=== PATIENT | male | born 1980 | race Caucasian/White ===

== ENCOUNTER 2016-11-25 01:02 | Observation (INO) | payer MEDICARE, OTHER ==
[2016-11-25] VITALS (9 sets, daily range): BP systolic 96–115; BP diastolic 51–68; PULSE 79–98; RESP 12–20; TEMP 98.1–98.8; O2SAT 95–98
[~2016-11-25] VITALS: Ht 182.9 cm; Wt 87.0 kg
[2016-11-25] MEDS ORDERED: XANA1TAB2 PO (01:19)
[2016-11-25 01:39] LABS: AUTOMATED NEUTROPHIL # 5.9 TH/MM3 (1.8-7.7); BASOPHIL # 0.1 TH/MM3 (0-0.2); BASOPHIL % 0.7 % (0.0-2.0); EOSINOPHIL # 0.1 TH/MM3 (0-0.4); EOSINOPHIL % 0.8 % (0.0-4.0); HEMATOCRIT 41.2 % (39.0-51.0); HEMO FLAGS DIFF FINAL; LYMPH % 28.2 % (9.0-44.0); LYMPHOCYTE # 2.6 TH/MM3 (1.0-4.8); MEAN CELL VOLUME 84.9 FL (80.0-100.0); MEAN CORPUSCULAR HEMOGLOBIN 29.3 PG (27.0-34.0); MEAN CORPUSCULAR HGB CONC 34.5 % (32.0-36.0); MONO % 7.5 % (0.0-8.0); NEUT % 62.8 % (16.0-70.0); PLATELET COUNT 256 TH/MM3 (150-450); RED BLOOD COUNT 4.85 MIL/MM3 (4.50-5.90); RED CELL DISTRIBUTION WIDTH 13.8 % (11.6-17.2); WHITE BLOOD COUNT 9.4 TH/MM3 (4.0-11.0)
--- NOTE | 2016-11-25 01:40 | RADRPT ---
EXAM DATE/TIME: 11/25/2016 01:29 [place] COMPARISON: No previous studies available for comparison. INDICATIONS : Chest pain. MEDICAL HISTORY : None. SURGICAL HISTORY : None. ENCOUNTER: Initial ACUITY: 1 day PAIN SCORE: 10/10 LOCATION: Bilateral chest FINDINGS: A single view of the chest demonstrates the lungs to be symmetrically aerated without evidence of mas s, infiltrate or effusion. The cardiomediastinal contours are unremarkable. Osseous structures are intact. CONCLUSION: No acute disease. Nathaniel Crow MD on November 25, 2016 at 1:38 Board Certified Radiologist. This report was verified electronically.
[2016-11-25 01:56] LABS: APTT (PATIENT) 26.9 SEC (24.3-30.1); PROTHROMBIN TIME - PATIENT 10.8 SEC (9.8-11.6)
[2016-11-25 02:12] LABS: ANION GAP 11 MEQ/L (5-15); AST (GOT) 33 U/L (15-37); BICARBONATE 24.8 MEQ/L (21.0-32.0); BLOOD UREA NITROGEN 8 MG/DL (7-18); CHLORIDE 104 MEQ/L (98-107); GLOMERULAR FILTRATION RATE 63 ML/MIN (>89); MAGNESIUM 2.2 MG/DL (1.5-2.5); POTASSIUM 3.1 MEQ/L (3.5-5.1); SODIUM (NA) 140 MEQ/L (136-145)
--- NOTE | 2016-11-25 02:19 | PD ---
HPI Chief Complaint: Chest Pain Time Seen by Provider: 01:12 Travel History International Travel<30 days: No Contact w/Intl Traveler<30days: No Traveled to known affect area: No History of Present Illness HPI The patient is 36 year old male who presents to the [facility] emergency department with a history of chest pain that he describes as a tightening sensation that began at approximately midnight today. He reports that he was having intercourse with his girlfriend when this began. He reports that he felt like it was difficult to take a deep breath. He reports that he had nausea but no vomiting. He denies having any diaphoresis. He reports that the pain is in the center of his chest. He denies having any radiation of the pain. He denies ever having this pain previously. He did use methamphetamine at 2 PM for the first time today. Ports that he smokes approximately 5-7 cigarettes per day. He denies having any prior history of cardiac disease, hyperlipidemia, hypertension, or diabetes mellitus. He denies having any family history of heart disease. He does report having a history of anxiety disorder. He takes Xanax 1 mg 3 times a day. He denies ever having stress testing done previously. The patient denies any recent fevers, cough, congestion , neck pain, acid reflux, abdominal pain, vomiting, diarrhea, urinary symptoms, or neurologic symptoms. PFSH Past Medical History Narrative Medical The patient's past medical history is significant for anxiety disorder, tobacco use. Anxiety: Yes Diminished Hearing: No Tetanus Vaccination: Unknown Past Surgical History Narrative Surgical The patient's past surgical history is reportedly none. Surgical History: No Previous Surgery Social History Alcohol Use: Yes (occasionally) Tobacco Use: Yes (5-7 cigarettes per day.) Substance Use: Yes (tried meth for first time today) Allergies-Medications (Allergen,Severity, Reaction): Coded Allergies: No Known Allergies (Unverified , 11/25/16) Reported Meds & Prescriptions Reported Meds & Active Scripts Active Reported Xanax (Alprazolam) 1 Mg Tab 1 Mg PO Q8H PRN Review of Systems Except as stated in HPI: all other systems reviewed are Neg General / Constitutional: No: Fever Eyes: No: Visual changes HENT: No: Headaches Cardiovascular: Positive: Chest Pain or Discomfort, Dyspnea on exertion Respiratory: Positive: Shortness of Breath, No: Cough Gastrointestinal: Positive: Nausea, No: Vomiting, Diarrhea, Abdominal Pain, Changes in Bowel Habits, Indigestion, Loss of Appetite Genitourinary: No: Dysuria Musculoskeletal: No: Pain Skin: No Rash Neurologic: No: Weakness, Focal Abnormalities, Change in Mentation, Slurred Speech, Sensory Disturbance Psychiatric: No: Depression Endocrine: No: Polydipsia Hematologic/Lymphatic: No: Easy Bruising Physical Exam Narrative General: The patient is a well-developed well-nourished male in no acute distress. Head and Neck exam: Head is normocephalic atraumatic. Eyes: EOMI, pupils are equal round and reactive to light. Nose: Midline septum with pink mucous membranes Mouth: Dentition unremarkable. Moist mucus membranes. Posterior oropharynx is not erythematous. No tonsillar hypertrophy. Uvula midline. Airway patent. Neck: No palpable lymphadenopathy. No nuchal rigidity. No thyromegaly. Cardiovascular: Regular rate and rhythm without murmurs, gallops, or rubs. No pulse deficit to the extremities and simultaneous auscultation and palpation of his radial artery. Lungs: Clear to auscultation bilaterally. No wheezes, rhonchi, or rales. Abdomen: Soft, without tenderness to palpation in all 4 quadrants of the abdomen. No guarding, rebound, or rigidity. Normal bowel sounds are audible. No tenderness on palpation of McBurney's point. Extremities: No clubbing, cyanosis, or edema. 2+ pulses in all 4 extremities. No calf tenderness on palpation. Back: No costovertebral angle tenderness to palpation. Neurologic Exam: Grossly nonfocal. Skin Exam: No rash noted. Intact skin that is warm and dry. Data Data Last Documented VS Vital Signs Date Time Temp Pulse Resp B/P Pulse Ox O2 Delivery O2 Flow Rate FiO2 11/25/16 02:56 91 16 115/64 97 Room Air 11/25/16 01:08 98.8 Orders Electrocardiogram (11/25/16 01:14) B-Type Natriuretic Peptide (11/25/16 01:14) Ckmb (Isoenzyme) Profile (11/25/16 01:14) Complete Blood Count With Diff (11/25/16 01:14) Comprehensive Metabolic Panel (11/25/16 01:14) Magnesium (Mg) (11/25/16 01:14) Prothrombin Time / Inr (Pt) (11/25/16 01:14) Act Partial Throm Time (Ptt) (11/25/16 01:14) Troponin I (11/25/16 01:14) Lipase (11/25/16 01:14) Chest, Single Ap (11/25/16 01:14) Ecg Monitoring (11/25/16 01:14) Bilateral Bp Monitoring (11/25/16 01:14) Iv Access Insert/Monitor (11/25/16 01:14) Oximetry (11/25/16 01:14) Oxygen Administration (11/25/16 01:14) Aspirin Chew (Aspirin Chew) (11/25/16 02:30) Sodium Chlorid 0.9% 500 Ml Inj (Ns 500 M (11/25/16 02:30) Nitroglycerin 2% Oint (Nitroglycerin 2% (11/25/16 02:30) Nitroglycerin Sl (Nitrostat Sl) (11/25/16 02:30) CKMB (11/25/16 01:15) CKMB% (11/25/16 01:15) Potassium Chloride Eff (K-Lyte Cl Eff) (11/25/16 03:30) Sodium Chlor 0.9% 1000 Ml Inj (Ns 1000 M (11/25/16 03:30) Admit Order (Ed Use Only) (11/25/16 03:19) Labs Laboratory Tests Test 11/25/16 01:15 White Blood Count 9.4 TH/MM3 Red Blood Count 4.85 MIL/MM3 Hemoglobin 14.2 GM/DL Hematocrit 41.2 % Mean Corpuscular Volume 84.9 FL Mean Corpuscular Hemoglobin 29.3 PG Mean Corpuscular Hemoglobin 34.5 % Concent Red Cell Distribution Width 13.8 % Platelet Count 256 TH/MM3 Mean Platelet Volume 7.7 FL Neutrophils (%) (Auto) 62.8 % Lymphocytes (%) (Auto) 28.2 % Monocytes (%) (Auto) 7.5 % Eosinophils (%) (Auto) 0.8 % Basophils (%) (Auto) 0.7 % Neutrophils # (Auto) 5.9 TH/MM3 Lymphocytes # (Auto) 2.6 TH/MM3 Monocytes # (Auto) 0.7 TH/MM3 Eosinophils # (Auto) 0.1 TH/MM3 Basophils # (Auto) 0.1 TH/MM3 CBC Comment DIFF FINAL Differential Comment Prothrombin Time 10.8 SEC Prothromb Time International 1.0 RATIO Ratio Activated Partial 26.9 SEC Thromboplast Time Sodium Level 140 MEQ/L Potassium Level 3.1 MEQ/L Chloride Level 104 MEQ/L Carbon Dioxide Level 24.8 MEQ/L Anion Gap 11 MEQ/L Blood Urea Nitrogen 8 MG/DL Creatinine 1.28 MG/DL Estimat Glomerular Filtration 63 ML/MIN Rate Random Glucose 106 MG/DL Calcium Level 8.6 MG/DL Magnesium Level 2.2 MG/DL Total Bilirubin 0.5 MG/DL Aspartate Amino Transf 33 U/L (AST/SGOT) Alanine Aminotransferase 46 U/L (ALT/SGPT) Alkaline Phosphatase 58 U/L Total Creatine Kinase 976 U/L Creatine Kinase MB 5.4 NG/ML Creatine Kinase MB % 0.6 % Troponin I LESS THAN 0.02 NG/ML B-Type Natriuretic Peptide LESS THAN 2 PG/ML Total Protein 6.7 GM/DL Albumin 3.6 GM/DL Lipase 75 U/L MDM Medical Decision Making Medical Screen Exam Complete: Yes Emergency Medical Condition: Yes Medical Record Reviewed: Yes Interpretation(s) Last Impressions Chest X-Ray 11/25/16 0114 Signed Impressions: Service Date/Time: Friday, November 25, 2016 01:29 - CONCLUSION: No acute disease. Nathaniel Crow MD Differential Diagnosis Acute coronary syndrome, versus pneumothorax, versus anxiety disorder, versus pneumonia, versus costochondritis, versus pleurisy Narrative Course During the course of the patients emergency department visit, the patients history, examination, and differential diagnosis were reviewed with the patient. The patient had IV access obtained and blood work sent for analysis. The patient was placed on a cardiac monitor technician with oximetry and blood pressure monitoring. An EKG was done on arrival. The patient's EKG shows a sinus rhythm with occasional premature atrial complexes. No acute ST segment elevation or depression is noted. QRS duration is 99 ms, QTc is 415 ms. The patient was initially provided aspirin 162 mg by mouth 1. Nitroglycerin sublingual 1, nitroglycerin 1 inch to the chest wall, normal saline a 500 mL bolus 1. The patients laboratory studies were reviewed and remarkable for a CBC that is within normal limits. CMP is remarkable for potassium of 3.1 which was supplemented orally, GFR 63, CPK 976 with an MB percent is 0.6, troponin I less than 0.02, BNP is less than 2, lipase 75, PT PTT within normal limits. Given the patient's elevated CPK although it does not meet criteria for rhabdomyolysis patient was given increased hydration. The patient was given normal saline and additional liter IV fluid bolus and will be maintained on maintenance normal saline IV fluids. Radiology studies were reviewed and remarkable for a chest x-ray that showed no acute abnormality. The patients results were discussed with the patient, including the plan of care. I explained that further testing and/ or monitoring is indicated based on the patients history, examination, and/ or laboratory findings. Therefore, I recommended admission for additional evaluation. The patient expressed understanding and was agreeable with this plan. The patient was admitted to the hospital in stable condition and sent to a bed under the care of the chest pain center. Diagnosis Primary Impression: Chest pain, rule out acute myocardial infarction Admitting Information Admitting Physician Requests: Joyce Carbone MD November 25, 2016 02:19
[2016-11-25 02:25] LABS: ALKALINE PHOSPHATASE 58 U/L (45-117); ALT (GPT) 46 U/L (12-78); CREATINE KINASE 976 U/L (39-308); TOTAL BILIRUBIN ADULT 0.5 MG/DL (0.2-1.0)
[2016-11-25] MEDS ORDERED: SODIUM CHLORID 0.9% 500 ML INJ 500 ML IV ONE (02:30)
[2016-11-25] MEDS ORDERED: NITROGLYCERIN 2% OINT 1 GM PACKET TOPICAL ONE (02:30)
[2016-11-25] MEDS ORDERED: ASPIRIN 81 MG CHEW TAB CHEW ONE (02:30)
[2016-11-25] MEDS ORDERED: NITROGLYCERIN 0.4 MG SL 25 TABS/BTL SL ONE (02:30)
[2016-11-25 02:38] LABS: CKMB 5.4 NG/ML (0.5-3.6)
[2016-11-25] MEDS ORDERED: SODIUM CHLOR 0.9% 1000 ML INJ 1,000 ML IV SCH (03:21)
[2016-11-25] MEDS ORDERED: POTASSIUM CHLORIDE 25 MEQ EFFERVESCENT TAB PO ONE (03:30)
[2016-11-25] MEDS ORDERED: ONDANSETRON HCL 4 MG/2 ML VIAL IV PRN (03:30)
[2016-11-25] MEDS ORDERED: SODIUM CHLOR 0.9% 1000 ML INJ 1,000 ML IV ONE (03:30)
[2016-11-25] MEDS ORDERED: ACETAMINOPHEN 500 MG CPLT PO PRN (03:30)
[2016-11-25] MEDS ORDERED: SODIUM CHLORIDE 0.9% FLUSH 10 ML FLUSH IV FLUSH PRN (03:30)
[2016-11-25 05:39] LABS: CREATINE KINASE 831 U/L (39-308)
[2016-11-25 05:52] LABS: CKMB 4.3 NG/ML (0.5-3.6)
[2016-11-25 08:16] LABS: CREATINE KINASE 827 U/L (39-308)
[2016-11-25 08:28] LABS: CKMB 4.6 NG/ML (0.5-3.6)
[2016-11-25] MEDS ORDERED: CYMB30CA PO (08:32)
[2016-11-25] MEDS ORDERED: SODIUM CHLORIDE 0.9% FLUSH 10 ML FLUSH IV FLUSH SCH (09:00)
--- NOTE | 2016-11-25 09:16 | HHI.HP ---
HPI Primary Care Physician No Primary Care Physician Chief Complaint Chest pain History of Present Illness This is a 36-year-old male that presents to ED to evaluate chest discomfort. He states that the discomfort began around 9:00 last evening while he was at home. [place] a tightness in the center of his chest. It was a 9 out of 10. He was a little short of breath. No nausea or diaphoresis. The discomfort is still there however not as intense. He could not recall initially and it may have caused the discomfort but now measures to using crystal methamphetamine a few hours prior. He states that the first time he had used the drug. He denies other illicit drug use. Denies history of CAD. Rates his lung medical problems are related to anxiety and PTSD. He states he is on disability for PTSD. Denies recent travel. Denies recent illness. Denies fevers or chills. Review of Systems General: Patient denies fevers, chills recent, and recent travel HEENT: Patient denies headache, sore throat, difficulty swallowing. Cardiovascular: Has the chest discomfort as mentioned above. Denies sensation of heart beating rapidly or irregularly. No syncope. Denies diaphoresis. Respiratory: He was a little short of breath. Denies inspirational chest discomfort. Denies coughing wheezing or hemoptysis. GI: Patient denies nausea, vomiting, diarrhea, abdominal pain, bloody stools. Musculoskeletal: Patient denies joint pain or edema. Denies calf pain or edema. Neurovascular: Patient denies numbness, tingling, weakness in extremities. Denies headache. Endocrine: Denies polyuria and polydipsia. Hematologic: Denies easy bruising. Skin: Denies rash or itching. Past Family Social History Allergies: Coded Allergies: No Known Allergies (Unverified , 11/25/16) Past Medical History PTSD. Anxiety. Tobacco abuse. Substance abuse. Denies diabetes, hypertension , hyperlipidemia, and known CAD. Past Surgical History Denies. Reported Medications Reported Meds & Active Scripts Active Reported Cymbalta DR (Duloxetine HCl) 30 Mg Capdr 30 Mg PO DAILY Xanax (Alprazolam) 1 Mg Tab 1 Mg PO Q8H PRN Active Ordered Medications Current Medications Medications (Trade) Dose Ordered Sig/Dave Route Start Time Stop Time Status Last Admin (NS 1000 ml Inj) 1,000 ml @ 100 mls/hr Q10H IV 11/25/16 03:21 (NS Flush) 2 ml UNSCH PRN IV FLUSH 11/25/16 03:30 (NS Flush) 2 ml BID IV FLUSH 11/25/16 09:00 (Tylenol) 500 mg Q4H PRN PO 11/25/16 03:30 11/25/16 08:35 (Zofran Inj) 4 mg Q6H PRN IV 11/25/16 03:30 Family History Denies family history of CAD. Social History Patient smokes about one half pack of cigarettes daily for 24 years. He has occasional alcohol. States he tried crystal methamphetamine for the first time yesterday. Physical Exam Vital Signs Vital Signs Date Time Temp Pulse Resp B/P Pulse Ox O2 Delivery O2 Flow Rate FiO2 11/25/16 08:37 98.1 81 16 98/51 96 11/25/16 06:08 98.1 88 18 96/53 96 11/25/16 05:00 89 16 110/68 97 Room Air 11/25/16 03:26 95 21 11/25/16 02:56 91 16 115/64 97 Room Air 11/25/16 01:17 97 Room Air 11/25/16 01:17 112/56 11/25/16 01:17 12 97 Room Air 11/25/16 01:13 99 Room Air 11/25/16 01:08 98.8 98 20 112/56 98 Physical Exam GENERAL: This is a well-nourished, well-developed patient, in no apparent distress. Patient speaks in clear complete sentences. Patient is pleasant. HEENT: Head is atraumatic and normocephalic. Neck is supple without lymphadenopathy and trachea is midline. No JVD or carotid bruits. CARDIOVASCULAR: Regular rate and rhythm without murmurs, gallops, or rubs. RESPIRATORY: Clear to auscultation. Breath sounds equal bilaterally. No wheezes , rales, or rhonchi. Chest wall is nontender. No use of accessory muscles. GASTROINTESTINAL: Abdomen is nontender, nondistended. Abdomen soft. No obvious pulsatile mass or bruit. No CVA tenderness. Strong femoral pulses bilaterally. Normal bowel sounds in all quadrants. MUSCULOSKELETAL: Patient is moving upper and lower extremities freely. No calf tenderness or edema, no Homans sign. Strong pulses in upper and lower extremities. NEUROLOGICAL: Patient is alert and oriented. Cranial nerves 2-12 are grossly intact. No focal deficits and speech is clear. SKIN: No rash and turgor is normal. Laboratory Laboratory Tests Test 11/25/16 11/25/16 11/25/16 01:15 04:23 06:35 White Blood Count 9.4 Red Blood Count 4.85 Hemoglobin 14.2 Hematocrit 41.2 Mean Corpuscular Volume 84.9 Mean Corpuscular Hemoglobin 29.3 Mean Corpuscular Hemoglobin 34.5 Concent Red Cell Distribution Width 13.8 Platelet Count 256 Mean Platelet Volume 7.7 Neutrophils (%) (Auto) 62.8 Lymphocytes (%) (Auto) 28.2 Monocytes (%) (Auto) 7.5 Eosinophils (%) (Auto) 0.8 Basophils (%) (Auto) 0.7 Neutrophils # (Auto) 5.9 Lymphocytes # (Auto) 2.6 Monocytes # (Auto) 0.7 Eosinophils # (Auto) 0.1 Basophils # (Auto) 0.1 CBC Comment DIFF FINAL Differential Comment Prothrombin Time 10.8 Prothromb Time International 1.0 Ratio Activated Partial 26.9 Thromboplast Time Sodium Level 140 Potassium Level 3.1 Chloride Level 104 Carbon Dioxide Level 24.8 Anion Gap 11 Blood Urea Nitrogen 8 Creatinine 1.28 Estimat Glomerular Filtration 63 Rate Random Glucose 106 Calcium Level 8.6 Magnesium Level 2.2 Total Bilirubin 0.5 Aspartate Amino Transf 33 (AST/SGOT) Alanine Aminotransferase 46 (ALT/SGPT) Alkaline Phosphatase 58 Total Creatine Kinase 976 831 827 Creatine Kinase MB 5.4 4.3 4.6 Creatine Kinase MB % 0.6 0.5 0.6 Troponin I LESS THAN 0.02 LESS THAN 0.02 LESS THAN 0.02 B-Type Natriuretic Peptide LESS THAN 2 Total Protein 6.7 Albumin 3.6 Lipase 75 Result Diagram: 11/25/1611411/25/16114 Imaging Last 24 hours Impressions Chest X-Ray 11/25/16113 Signed Impressions: Service Date/Time: Friday, November 25, 2016 01:29 - CONCLUSION: No acute disease. Nathaniel Crow MD Course EKGs have sinus rhythm without significant ST segment depressions or elevations. Assessment and Plan Assessment and Plan * Chest pain: His symptoms are atypical. He had normal troponins 3. CPKs are elevated to indicate some muscle breakdown but not cardiac. He'll be given IV hydration and advised to continue increased fluid intake the next couple days to hydrate himself. He should follow-up with local doctor. * PTSD: Continue current medication. * Tobacco abuse: Patient was counseled on the importance of tobacco cessation. * Illicit drug use: Patient has been advised to no longer use illicit drugs. Patient is stable to time. He is agreeable to this plan. Dieudonne Blunt November 25, 2016 09:16
--- NOTE | 2016-11-25 09:19 | HHI.DCPOC ---
Discharge Care Plan Diagnosis: (1) Chest pain (2) PTSD (post-traumatic stress disorder) (3) Tobacco abuse (4) Chest pain, rule out acute myocardial infarction Goals to Promote Your Health * To prevent worsening of your condition and complications * To maintain your health at the optimal level Directions to Meet Your Goals Take your medications as prescribed Follow your dietary instruction Follow activity as directed Keep your appointments as scheduled Take your immunizations and boosters as scheduled If your symptoms worsen call your PCP, if no PCP go to Urgent Care Center or Emergency Room Smoking is Dangerous to Your Health. Avoid second hand smoke Call the 24-hour hour crisis hotline for domestic abuse at Dieudonne Blunt November 25, 2016 09:19
--- NOTE | 2016-11-25 17:23 | EKG ---
Date Performed: 11/25/2016 Time Performed: 06:46:54 PTAGE: 36 years EKG: Sinus rhythm NORMAL ECG Since PREVIOUS TRACING , no significant change noted PREVIOUS TRACIN11/25/2016 04.56 DOCTOR: Ave Maldondao Interpretating Date/Time 11/25/2016 17:22:59
--- NOTE | 2016-11-25 17:23 | EKG ---
Date Performed: 11/25/2016 Time Performed: 04:56:31 PTAGE: 36 years EKG: Sinus rhythm NORMAL ECG Since PREVIOUS TRACING , no significant change noted DOCTOR: Ave Maldonado Interpretating Date/Time 11/25/2016 17:23:12
--- NOTE | 2016-11-25 17:25 | EKG ---
Date Performed: 11/25/2016 Time Performed: 01:10:04 PTAGE: 36 years EKG: Sinus rhythm WITH OCCASIONAL SUPRAVENTRICULAR PREMATURE COMPLEXES BORDERLINE ECG NO PREVIOUS TRACING DOCTOR: Ave Maldonado Interpretating Date/Time 11/25/2016 17:24:33
== END 2016-11-25 13:07 | disposition home or self-care (01) ==
LOC: NEPE 01:02 → NEDA 03:21 → NEPGCP 05:53
PROVIDERS: ADMIT Internal Medicine Cardiovascular Disease; ATTEND Internal Medicine Cardiovascular Disease
DX: R07.9 Chest pain, unspecified (principal); F43.10 Post-traumatic stress disorder, unspecified; R11.0 Nausea; R06.02 Shortness of breath; F17.210 Nicotine dependence, cigarettes, uncomplicated
CPT/HCPCS: 71010; 80053; 82550; 82552; 83690; 83735; 83880; 84484; 85025; 85610; 85730; 93005; 96360; 99285; G0378; J7030; J7040

== ENCOUNTER 2017-12-27 21:39 | Emergency (ER) | payer MEDICARE, OTHER ==
[2017-12-27 21:59] VITALS: BP 185/81; PULSE 90; RESP 16; TEMP 97.7; O2SAT 98
--- NOTE | 2017-12-27 22:19 | PD ---
HPI Chief Complaint: GI Complaint Time Seen by Provider: 22:01 Travel History International Travel<30 days: No Contact w/Intl Traveler<30days: No Traveled to known affect area: No History of Present Illness HPI The patient is a 37 year old male who presents to the [facility] emergency department with a history of nausea, vomiting, and diarrhea that began this morning. The patient denies any sick contacts. He reports that he was drinking alcohol yesterday which sometimes. He reports that he drinks 6 beers which is more alcohol than he usually drinks. He denies having blood in his emesis or blood in his stool. He denies having any mucus in his stool. He denies any recent antibiotic use. He denies any unusual food intake. He denies any foreign travel. He denies having any recent fevers. The patient reports having associated midepigastric abdominal pain. On review of systems otherwise, he denies having any cough or congestion, neck pain, chest pain, shortness of breath, urinary symptoms, or neurologic symptoms. [facility] Past Medical History Narrative Medical The patient's past medical history is significant for anxiety disorder, posttraumatic stress disorder. Asthma: Yes Anxiety: Yes Depression: No Cancer: No Cardiovascular Problems: No Diminished Hearing: No Endocrine: No Genitourinary: No Immune Disorder: No Musculoskeletal: No Neurologic: No Psychiatric: Yes Reproductive: No Respiratory: No Immunizations Current: Yes Past Surgical History Narrative Surgical The patient's past surgical history is reportedly none. Social History Alcohol Use: Yes Tobacco Use: Yes (5-7 cigarettes per day.) Substance Use: No Allergies-Medications (Allergen,Severity, Reaction): Coded Allergies: No Known Allergies (Unverified Adverse Reaction, Unknown, 12/27/17) Reported Meds & Prescriptions Reported Meds & Active Scripts Active No Active Prescriptions or Reported Medications Review of Systems Except as stated in HPI: all other systems reviewed are Neg General / Constitutional: No: Fever Eyes: No: Visual changes HENT: No: Headaches Cardiovascular: No: Chest Pain or Discomfort Respiratory: No: Shortness of Breath Gastrointestinal: Positive: Nausea, Vomiting, Diarrhea, Abdominal Pain, Changes in Bowel Habits, Indigestion, No: Hematemesis, Hematochezia, Loss of Appetite Genitourinary: No: Dysuria Musculoskeletal: No: Pain Skin: No Rash Neurologic: No: Weakness, Focal Abnormalities, Change in Mentation, Slurred Speech, Sensory Disturbance Psychiatric: No: Depression Endocrine: No: Polydipsia Hematologic/Lymphatic: No: Easy Bruising Physical Exam Narrative General: The patient is a well-developed well-nourished male in no acute distress. Head and Neck exam: Head is normocephalic atraumatic. Eyes: EOMI, pupils are equal round and reactive to light. Nose: Midline septum with pink mucous membranes Mouth: Dentition unremarkable. Moist mucus membranes. Posterior oropharynx is not erythematous. No tonsillar hypertrophy. Uvula midline. Airway patent. Neck: No palpable lymphadenopathy. No nuchal rigidity. No thyromegaly. Cardiovascular: Regular rate and rhythm without murmurs, gallops, or rubs. No pulse deficit to the extremities on simultaneous auscultation and palpation of his radial artery. Lungs: Clear to auscultation bilaterally. No wheezes, rhonchi, or rales. Abdomen: Soft, without tenderness to palpation in all 4 quadrants of the abdomen. No guarding, rebound, or rigidity. Normal bowel sounds are audible. No tenderness on palpation of McBurney's point. Negative Bowling sign. Extremities: No clubbing, cyanosis, or edema. 2+ pulses in all 4 extremities. No calf tenderness on palpation. Back: No costovertebral angle tenderness to palpation. Neurologic Exam: Grossly nonfocal. Skin Exam: No rash noted. Intact skin that is warm and dry. Data Data Last Documented VS Vital Signs Date Time Temp Pulse Resp B/P (MAP) Pulse Ox O2 Delivery O2 Flow Rate FiO2 12/27/17 23:03 12/27/17 22:39 88 16 99 Room Air 12/27/17 21:59 97.7 Orders Orders Electrocardiogram (12/27/17 22:17) Complete Blood Count With Diff (12/27/17 22:17) Comprehensive Metabolic Panel (12/27/17 22:17) Lipase (12/27/17 22:17) Magnesium (Mg) (12/27/17 22:17) Iv Access Insert/Monitor (12/27/17 22:17) Ecg Monitoring (12/27/17 22:17) Oximetry (12/27/17 22:17) Sodium Chlor 0.9% 1000 Ml Inj (Ns 1000 M (12/27/17 22:30) Prochlorperazine Inj (Compazine Inj) (12/27/17 22:30) Labs Laboratory Tests Test 12/27/17 22:30 White Blood Count 8.9 TH/MM3 Red Blood Count 5.12 MIL/MM3 Hemoglobin 15.1 GM/DL Hematocrit 44.6 % Mean Corpuscular Volume 87.1 FL Mean Corpuscular Hemoglobin 29.4 PG Mean Corpuscular Hemoglobin Concent 33.8 % Red Cell Distribution Width 14.4 % Platelet Count 286 TH/MM3 Mean Platelet Volume 7.6 FL Neutrophils (%) (Auto) 63.4 % Lymphocytes (%) (Auto) 26.9 % Monocytes (%) (Auto) 8.8 % Eosinophils (%) (Auto) 0.2 % Basophils (%) (Auto) 0.7 % Neutrophils # (Auto) 5.7 TH/MM3 Lymphocytes # (Auto) 2.4 TH/MM3 Monocytes # (Auto) 0.8 TH/MM3 Eosinophils # (Auto) 0.0 TH/MM3 Basophils # (Auto) 0.1 TH/MM3 CBC Comment DIFF FINAL Differential Comment Blood Urea Nitrogen 13 MG/DL Creatinine 1.09 MG/DL Random Glucose 135 MG/DL Total Protein 7.3 GM/DL Albumin 4.0 GM/DL Calcium Level 8.4 MG/DL Magnesium Level 2.2 MG/DL Alkaline Phosphatase 82 U/L Aspartate Amino Transf (AST/SGOT) 30 U/L Alanine Aminotransferase (ALT/SGPT) 95 U/L Total Bilirubin 0.3 MG/DL Sodium Level 139 MEQ/L Potassium Level 3.8 MEQ/L Chloride Level 103 MEQ/L Carbon Dioxide Level 27.1 MEQ/L Anion Gap 9 MEQ/L Estimat Glomerular Filtration Rate 75 ML/MIN Lipase 75 U/L [facility] Medical Decision Making Medical Screen Exam Complete: Yes Emergency Medical Condition: Yes Medical Record Reviewed: Yes Differential Diagnosis Viral versus bacterial gastroenteritis, versus alcohol related gastritis, versus electrolyte derangements, versus dehydration Narrative Course During the course of the patient's emergency department visit, the patient's history, examination, and differential diagnosis were reviewed with the patient. The patient was placed on a court monitor with oximetry and frequent blood pressure monitoring. The patient had IV access obtained and blood work sent for analysis. The patient had an EKG done on arrival. The patient's EKG shows a sinus rhythm heart rate of 86, QRS duration 96 ms, QTC [address] segment elevation is noted. T waves are inverted in lead III. The patient was initially provided normal saline 1 L IV fluid bolus, Compazine 5 mg IV. The patient's laboratory studies were reviewed and remarkable for 12/27/17 22:30 Total Protein 7.3, Albumin 4.0, Calcium Level 8.4 L, Magnesium Level 2.2, Alkaline Phosphatase 82, Aspartate Amino Transf (AST/SGOT) 30, Alanine Aminotransferase (ALT/SGPT) 95 H, Total Bilirubin 0.3 Prior to the patient's chemistry being resulted, I was notified by the nurse that the patient had decided that he wanted to leave. I went in to discuss the patient's reason for leaving with him further, however he did not have any particular reason, instead he reports that he just has to go. I explained that he could have dehydration, electrolyte derangements or other abnormalities that I would not be able to diagnose without this further information. The patient continues to insist to leave AGAINST MEDICAL ADVICE. AMA: The risks of leaving against medical advice without further evaluation treatment were discussed with the patient. These risks include dehydration, electrolyte derangements which could lead to cardiac dysrhythmias, renal failure , or even . The patient indicated understanding of these risks and appeared to have the capacity to make this decision. Diagnosis Primary Impression: Nausea, vomiting, and diarrhea Referrals: [facility] 2 days Primary Care Physician 2 days Patient Instructions: Acute Diarrhea (ED), Acute Nausea and Vomiting (ED), General Instructions Scripts No Active Prescriptions or Reported Meds Disposition: 07 AGAINST MEDICAL ADVICE Condition: Stable Joyce Mendoza MD Dec 27, 2017 22:19
[2017-12-27] MEDS ORDERED: SODIUM CHLOR 0.9% 1000 ML INJ 1,000 ML IV ONE (22:30)
[2017-12-27] MEDS ORDERED: PROCHLORPERAZINE INJ 10 MG/2 ML VIAL IV PUSH ONE (22:30)
[2017-12-27 22:39] VITALS: BP 131/69; PULSE 88; RESP 16; O2SAT 99
[2017-12-27 22:45] LABS: AUTOMATED NEUTROPHIL # 5.7 TH/MM3 (1.8-7.7); BASOPHIL # 0.1 TH/MM3 (0-0.2); BASOPHIL % 0.7 % (0.0-2.0); EOSINOPHIL % 0.2 % (0.0-4.0); HEMATOCRIT 44.6 % (39.0-51.0); HEMOGLOBIN 15.1 GM/DL (13.0-17.0); LYMPH % 26.9 % (9.0-44.0); LYMPHOCYTE # 2.4 TH/MM3 (1.0-4.8); MEAN CELL VOLUME 87.1 FL (80.0-100.0); MEAN CORPUSCULAR HEMOGLOBIN 29.4 PG (27.0-34.0); MEAN CORPUSCULAR HGB CONC 33.8 % (32.0-36.0); MEAN PLATELET VOLUME 7.6 FL (7.0-11.0); MONO % 8.8 % (0.0-8.0); MONOCYTE # 0.8 TH/MM3 (0-0.9); NEUT % 63.4 % (16.0-70.0); PLATELET COUNT 286 TH/MM3 (150-450); RED BLOOD COUNT 5.12 MIL/MM3 (4.50-5.90); RED CELL DISTRIBUTION WIDTH 14.4 % (11.6-17.2); WHITE BLOOD COUNT 8.9 TH/MM3 (4.0-11.0)
[2017-12-27 23:07] LABS: ALT (GPT) 95 U/L (12-78); AST (GOT) 30 U/L (15-37); BICARBONATE 27.1 MEQ/L (21.0-32.0); BLOOD UREA NITROGEN 13 MG/DL (7-18); CALCIUM 8.4 MG/DL (8.5-10.1); CHLORIDE 103 MEQ/L (98-107); CREATININE 1.09 MG/DL (0.60-1.30); GLOMERULAR FILTRATION RATE 75 ML/MIN (>89); GLUCOSE,RANDOM 135 MG/DL (74-106); MAGNESIUM 2.2 MG/DL (1.5-2.5); SODIUM (NA) 139 MEQ/L (136-145)
[2017-12-27 23:10] LABS: ALKALINE PHOSPHATASE 82 U/L (45-117); TOTAL BILIRUBIN ADULT 0.3 MG/DL (0.2-1.0); TOTAL PROTEIN 7.3 GM/DL (6.4-8.2)
--- NOTE | 2017-12-28 23:03 | EKG ---
Date Performed: 12/27/2017 Time Performed: 22:35:25 PTAGE: 37 years EKG: Sinus rhythm NORMAL ECG PREVIOUS TRACING : 11/25/2016 06.46 DOCTOR: Johan Stovall Interpretating Date/Time 12/28/2017 22:55:58
== END 2017-12-27 23:02 | disposition left against medical advice (07) ==
LOC: NEPC 21:39
DX: R11.2 Nausea with vomiting, unspecified (principal); R19.7 Diarrhea, unspecified; J45.909 Unspecified asthma, uncomplicated; F43.10 Post-traumatic stress disorder, unspecified; F41.9 Anxiety disorder, unspecified; F17.210 Nicotine dependence, cigarettes, uncomplicated; R10.13 Epigastric pain
CPT/HCPCS: 80053; 83690; 83735; 85025; 93005; 96374; 99284; J0780; J7030